=== PATIENT | female | born 1940 | race Hispanic/Latino ===

== ENCOUNTER 2017-08-16 17:08 | Inpatient (IN) | payer MEDICARE ==
[2017-08-16 17:52] LABS: Hematocrit 40.1 % (30.3-42.9); Hemoglobin 13.5 gm/dl (10.1-14.3); Mean Corpuscular HGB Conc 34 % (30-34); Mean Corpuscular Hemoglobin 32 pg (28-32); Mean Corpuscular Volume 95 fl (79-97); Platelet Count 248 K/mm3 (140-440); Red Blood Count 4.24 M/mm3 (3.65-5.03); Red Cell Distribution Width 13.1 % (13.2-15.2)
--- NOTE | 2017-08-16 17:53 | Emergency Department Report ---
ED Shortness of Breath HPI - General Chief Complaint: Dyspnea/Respdistress Stated Complaint: SID Time Seen by Provider: 08/16/17 17:31 Source: patient, EMS Mode of arrival: Stretcher Limitations: Physical Limitation - History of Present Illness Initial Comments: This diagnosis of lung mass with post obstructive pneumonia back today more short of breath, here for eval worse sob, cant use inhaler, not getting better MD Complaint: shortness of breath -: days(s) Quality: dull Consistency: intermittent Improves With: nothing Known History Of: COPD, other (lung mass history lung CA history pneumonia) Treatments Prior to Arrival: none - Related Data Home Medications Medication Instructions Recorded Confirmed Last Taken Hydrochlorothiazide [HCTZ] 12.5 mg PO QDAY 08/13/17 08/13/17 08/12/17 Metoprolol [Lopressor TAB] 100 mg PO DAILY 08/13/17 08/13/17 08/12/17 Previous Rx's Medication Instructions Recorded Last Taken Type ALBUTEROL Inhaler [ProAir HFA 2 puff IH QID PRN #1 can 08/15/17 Unknown Rx Inhaler] Levofloxacin [Levaquin] 750 mg PO QDAY #7 tablet 08/15/17 Unknown Rx Prednisone [predniSONE 10 mg 10 mg PO .TAPER #1 tab.ds.pk 08/15/17 Unknown Rx (6-Day Pack, 21 Tabs)] oxyCODONE /ACETAMINOPHEN [Percocet 1 tab PO Q6H PRN #10 tablet 08/15/17 Unknown Rx 5/325 mg] Allergies Allergy/AdvReac Type Severity Reaction Status Date / Time No Known Allergies Allergy Unverified 10/12/13 10:35 ED Review of Systems ROS: Stated complaint: SID Other details as noted in HPI Comment: All other systems reviewed and negative Constitutional: diaphoresis, malaise, weakness. denies: fever Eyes: denies: eye discharge, vision change Respiratory: shortness of breath, SOB with exertion, SOB at rest, wheezing. denies: stridor Cardiovascular: chest pain, dyspnea on exertion. denies: palpitations, syncope Gastrointestinal: denies: abdominal pain, nausea, vomiting, diarrhea, constipation, hematemesis, melena, hematochezia Neurological: weakness. denies: headache, numbness, paresthesias Hematological/Lymphatic: denies: easy bruising ED Past Medical Hx - Past Medical History Previous Medical History?: Yes Hx Hypertension: Yes Hx HIV: No Additional medical history: LUNG CA - Surgical History Hx Cholecystectomy: Yes Additional Surgical History: R pulmonectomy - Social History Smoking Status: Former Smoker Substance Use Type: None - Medications Home Medications: Home Medications Medication Instructions Recorded Confirmed Last Taken Type Hydrochlorothiazide [HCTZ] 12.5 mg PO QDAY 08/13/17 08/13/17 08/12/17 History Metoprolol [Lopressor TAB] 100 mg PO DAILY 08/13/17 08/13/17 08/12/17 History ALBUTEROL Inhaler [ProAir HFA 2 puff IH QID PRN #1 can 08/15/17 Unknown Rx Inhaler] Levofloxacin [Levaquin] 750 mg PO QDAY #7 tablet 08/15/17 Unknown Rx Prednisone [predniSONE 10 mg 10 mg PO .TAPER #1 tab.ds.pk 08/15/17 Unknown Rx (6-Day Pack, 21 Tabs)] oxyCODONE /ACETAMINOPHEN [Percocet 1 tab PO Q6H PRN #10 tablet 08/15/17 Unknown Rx 5/325 mg] ED Physical Exam - General Limitations: Physical Limitation General appearance: alert, anxious - Head Head exam: Present: atraumatic, normocephalic - Eye Eye exam: Present: PERRL, EOMI - ENT ENT exam: Present: normal exam, normal orophraynx - Neck Neck exam: Present: normal inspection. Absent: tenderness, meningismus - Respiratory Respiratory exam: Present: wheezes, rales, rhonchi, prolonged expiratory. Absent: stridor, accessory muscle use - Cardiovascular Cardiovascular Exam: Present: regular rate - GI/Abdominal GI/Abdominal exam: Present: soft. Absent: tenderness, guarding, rebound, rigid , mass, pulsatile mass - Extremities Exam Extremities exam: Present: normal capillary refill. Absent: calf tenderness - Back Exam Back exam: Present: normal inspection. Absent: CVA tenderness (L) - Neurological Exam Neurological exam: Present: alert, CN II-XII intact. Absent: motor sensory deficit ED Course Vital Signs 08/16/17 08/16/17 17:25 18:05 Temperature 97.1 F L Pulse Rate 57 L 65 Respiratory 22 22 Rate Blood Pressure 152/61 Blood Pressure 150/63 [Left] O2 Sat by Pulse 94 96 Oximetry ED Medical Decision Making - Lab Data Result diagrams: 08/16/17 17:39 - EKG Data -: EKG Interpreted by Me - EKG Data When compared to previous EKG there are: no significant change - Radiology Data Radiology results: report reviewed - Medical Decision Making Dr. Watson evaluated patient will be admitted for further evaluation of persistent shortness of breath and better oxygen therapy steroids and bronchodilator therapy Critical care attestation.: If time is entered above; I have spent that time in minutes in the direct care of this critically ill patient, excluding procedure time. ED Disposition Clinical Impression: Lung mass, Postobstructive pneumonia Disposition: 09 OP ADMIT IP TO THIS HOSP Is pt being admited?: Yes Condition: Stable Instructions: Bacterial Pneumonia (ED) Referrals: PRIMARY CARE, [Primary Care Provider] - 3-5 Days Time of Disposition: 19:01
[2017-08-16 18:13] LABS: INR 1.04 (0.87-1.13)
[2017-08-16 18:14] LABS: Partial Thromboplastin Time 34.6 Sec. (24.2-36.6)
[2017-08-16] MEDS ORDERED: ZOFRAN IV ONE (18:26)
[2017-08-16 18:32] LABS: Bilirubin,Urine NEG (Negative); Blood,Urine NEG (Negative); Color,Urine Yellow (Yellow); Mucus,Urine FEW /HPF; Protein,Urine <15 mg/dL mg/dL (Negative); Urobilinogen,Urine < 2.0 mg/dL (<2.0)
[2017-08-16 18:37] LABS: Band Neutrophils # (Manual) 0.1 K/mm3; Basophils % (Manual) 0 % (0.0-1.8); Eosinophils % (Manual) 0 % (0.0-4.3); Total Cells Counted 100
[2017-08-16 18:38] LABS: Anisocytosis 1+; Platelet Estimate Consistent w Auto
[2017-08-16 18:56] LABS: Amphetamine Screen,Urine PRESUMPTIVE NEGATIVE; Benzodiazepines Screen,Urine PRESUMPTIVE NEGATIVE; Cannabinoid Screen,Urine PRESUMPTIVE NEGATIVE; Cocaine Screen,Urine PRESUMPTIVE NEGATIVE; Methadone Screen,Urine PRESUMPTIVE NEGATIVE; Opiate Screen,Urine PRESUMPTIVE NEGATIVE
--- NOTE | 2017-08-16 18:58 | XRay Report ---
FINAL REPORT PROCEDURE: XR CHEST 1V AP TECHNIQUE: Chest radiograph anteroposterior view. CPT 40086 HISTORY: sob COMPARISON: 08/13/2017 FINDINGS: Heart: Normal. Mediastinum/Vessels: Enlarged left hilar structures is noted measuring 2.9 x 3.9 centimeters.. Lungs/Pleural space: Lungs are hyperinflated. There are no confluent infiltrates or mass lesions. Pleural spaces are clear. Emphysematous changes are noted.. Bony thorax: No acute osseous abnormality. Life support devices: None. IMPRESSION: Enlarged left hilum consistent with underlying lymphadenopathy or mass suspicious for malignancy. Emphysema No acute pulmonary infiltrates..
[2017-08-16] MEDS ORDERED: DUONEB *Not for PRN Use IH ONE (19:01)
[2017-08-16 19:22] LABS: Alanine Aminotransferase 19 units/L (7-56); Albumin 3.9 g/dL (3.9-5); BUN/Creatinine Ratio 17; Blood Urea Nitrogen 12 mg/dL (7-17)
[2017-08-16 19:31] LABS: Calcium 8.7 mg/dL (8.4-10.2); Hemolysis Index 2
--- NOTE | 2017-08-16 22:17 | History and Physical Report ---
History of Present Illness Date of examination: 08/16/17 Date of admission: 08/16/2017 Chief complaint: Chief complaint: Shortness of breath at home with no home oxygen. \ Shortness of breath worsening. History of present illness: History of Present Illness: 76-year-old female who was discharged recently after being treated for acute respiratory failure COPD exacerbation and possible new lung mass on the left side comes in for increasing shortness of breath. Patient feels that she is hypoxic. She is requesting for home oxygen. In moderate respiratory distress. Lung cancer workup was initiated in the last visit and arrangements were made for biopsy of the left lung. Patient also to follow with oncology and pulmonary doctors Dr. Moncada and Dr. Narayanan Follow-up big time smoker 76-year-old female with history of partial Rt lung resection for lung CA in 2012 recently started on an inhaler by her transportation attendant a week ago for wheezing has been having increasing shortness of breath off-and-on for 2 weeks. Chronic cough no fever no chest pain no abdominal pain. For evaluation of worsening shortness of breath. No calf pain or swelling, no abd pain , no other complaints. Some weight loss present. As per daughters the patient had lung cancer and was in remission since 2014 and apparently cancer free and stopped following with oncology since last 2 years. Former big time smoker Past Medical History Previous Medical History?: Yes Hx of Cancer: Yes (lung, R pulmonectomy; remission x5 yrs) Surgical History Past Surgical History?: Yes Additional Surgical History: R pulmonectomy Social History Smoking Status: Former Smoker Substance Use Type: None Family History Htn Review of Systems ROS: Stated complaint: SID Other details as noted in HPI Comment: All other systems reviewed and negative Constitutional: denies: diaphoresis, fever ENT: denies: dental pain, hearing loss, epistaxis Respiratory: cough, shortness of breath, SOB with exertion, SOB at rest, wheezing. denies: orthopnea, stridor Cardiovascular: denies: chest pain, palpitations, dyspnea on exertion, orthopnea , edema, syncope, paroxysmal nocturnal dyspnea Endocrine: denies: excessive sweating Gastrointestinal: denies: abdominal pain, nausea, vomiting, diarrhea, constipation, hematemesis, melena, hematochezia Neurological: denies: headache, weakness, numbness, paresthesias, confusion, abnormal gait, vertigo Hematological/Lymphatic: denies: easy bruising, swollen glands 14 point review of systems done Medications and Allergies Allergies Allergy/AdvReac Type Severity Reaction Status Date / Time No Known Allergies Allergy Unverified 10/12/13 10:35 Home Medications Medication Instructions Recorded Confirmed Last Taken Type Hydrochlorothiazide [HCTZ] 12.5 mg PO QDAY 08/13/17 08/16/17 08/12/17 History Metoprolol [Lopressor TAB] 100 mg PO DAILY 08/13/17 08/16/17 08/12/17 History ALBUTEROL Inhaler [ProAir HFA 2 puff IH QID PRN #1 can 08/15/17 08/16/17 Unknown Rx Inhaler] Levofloxacin [Levaquin] 750 mg PO QDAY #7 tablet 08/15/17 08/16/17 Unknown Rx Prednisone [predniSONE 10 mg 10 mg PO .TAPER #1 tab.ds.pk 08/15/17 08/16/17 Unknown Rx (6-Day Pack, 21 Tabs)] oxyCODONE /ACETAMINOPHEN [Percocet 1 tab PO Q6H PRN #10 tablet 08/15/17 Unknown Rx 5/325 mg] Exam - Physical Exam Narrative exam: Lying in bed slightly tachypneic - Constitutional Vitals: Temp Pulse Resp BP Pulse Ox 97.1 F L 64 16 139/66 94 08/16/17 19:50 08/16/17 19:50 08/16/17 19:53 08/16/17 19:50 08/16/17 19:53 General appearance: Present: mild distress, well-nourished - EENT Eyes: Present: PERRL ENT: hearing intact, clear oral mucosa - Neck Neck: Present: supple, normal ROM - Respiratory Respiratory effort: normal Respiratory: bilateral: CTA, rales, rhonchi - Cardiovascular Heart rate: 78 Rhythm: regular Heart Sounds: Present: S1 & S2. Absent: rub, click - Extremities Extremities: no ischemia, pulses intact, pulses symmetrical, No edema Peripheral Pulses: within normal limits - Abdominal General gastrointestinal: Present: soft, non-tender, non-distended, normal bowel sounds Female genitourinary: Present: normal - Rectal Rectal Exam: deferred - Integumentary Integumentary: Present: clear, warm, dry - Musculoskeletal Musculoskeletal: gait normal, strength equal bilaterally - Psychiatric Psychiatric: appropriate mood/affect, intact judgment & insight - Neurologic Neurologic: CNII-XII intact, moves all extremities - Allied Health Allied health notes reviewed: nursing, case management Results - Labs CBC & Chem 7: 08/16/17 17:39 08/16/17 17:39 Labs: Laboratory Last Values WBC 10.3 K/mm3 (4.5-11.0) 08/16/17 17:39 RBC 4.24 M/mm3 (3.65-5.03) 08/16/17 17:39 Hgb 13.5 gm/dl (10.1-14.3) 08/16/17 17:39 Hct 40.1 % (30.3-42.9) 08/16/17 17:39 MCV 95 fl (79-97) 08/16/17 17:39 MCH 32 pg (28-32) 08/16/17 17:39 MCHC 34 % (30-34) 08/16/17 17:39 RDW 13.1 % (13.2-15.2) L 08/16/17 17:39 Plt Count 248 K/mm3 (140-440) 08/16/17 17:39 Add Manual Diff Complete 08/16/17 17:39 Total Counted 100 08/16/17 17:39 Seg Neuts % (Manual) 90.0 % (40.0-70.0) H 08/16/17 17:39 Band Neutrophils % 1.0 % 08/16/17 17:39 Lymphocytes % (Manual) 4.0 % (13.4-35.0) L 08/16/17 17:39 Reactive Lymphs % (Man) 0 % 08/16/17 17:39 Monocytes % (Manual) 4.0 % (0.0-7.3) 08/16/17 17:39 Eosinophils % (Manual) 0 % (0.0-4.3) 08/16/17 17:39 Basophils % (Manual) 0 % (0.0-1.8) 08/16/17 17:39 Metamyelocytes % 1.0 % 08/16/17 17:39 Myelocytes % 0 % 08/16/17 17:39 Promyelocytes % 0 % 08/16/17 17:39 Blast Cells % 0 % 08/16/17 17:39 Nucleated RBC % Not Reportable 08/16/17 17:39 Seg Neutrophils # Man 9.3 K/mm3 (1.8-7.7) H 08/16/17 17:39 Band Neutrophils # 0.1 K/mm3 08/16/17 17:39 Lymphocytes # (Manual) 0.4 K/mm3 (1.2-5.4) L 08/16/17 17:39 Abs React Lymphs (Man) 0.0 K/mm3 08/16/17 17:39 Monocytes # (Manual) 0.4 K/mm3 (0.0-0.8) 08/16/17 17:39 Eosinophils # (Manual) 0.0 K/mm3 (0.0-0.4) 08/16/17 17:39 Basophils # (Manual) 0.0 K/mm3 (0.0-0.1) 08/16/17 17:39 Metamyelocytes # 0.1 K/mm3 08/16/17 17:39 Myelocytes # 0.0 K/mm3 08/16/17 17:39 Promyelocytes # 0.0 K/mm3 08/16/17 17:39 Blast Cells # 0.0 K/mm3 08/16/17 17:39 WBC Morphology Not Reportable 08/16/17 17:39 Hypersegmented Neuts Not Reportable 08/16/17 17:39 Hyposegmented Neuts Not Reportable 08/16/17 17:39 Hypogranular Neuts Not Reportable 08/16/17 17:39 Smudge Cells Not Reportable 08/16/17 17:39 Toxic Granulation Not Reportable 08/16/17 17:39 Toxic Vacuolation Not Reportable 08/16/17 17:39 Dohle Bodies Not Reportable 08/16/17 17:39 Pelger-Huet Anomaly Not Reportable 08/16/17 17:39 Veronica Rods Not Reportable 08/16/17 17:39 Platelet Estimate Consistent w auto 08/16/17 17:39 Clumped Platelets Not Reportable 08/16/17 17:39 Plt Clumps, EDTA Not Reportable 08/16/17 17:39 Large Platelets Not Reportable 08/16/17 17:39 Giant Platelets Not Reportable 08/16/17 17:39 Platelet Satelliting Not Reportable 08/16/17 17:39 Plt Morphology Comment Not Reportable 08/16/17 17:39 RBC Morphology Not Reportable 08/16/17 17:39 Dimorphic RBCs Not Reportable 08/16/17 17:39 Polychromasia Not Reportable 08/16/17 17:39 Hypochromasia Not Reportable 08/16/17 17:39 Poikilocytosis Not Reportable 08/16/17 17:39 Anisocytosis 1+ 08/16/17 17:39 Microcytosis Not Reportable 08/16/17 17:39 Macrocytosis Not Reportable 08/16/17 17:39 Spherocytes Not Reportable 08/16/17 17:39 Pappenheimer Bodies Not Reportable 08/16/17 17:39 Sickle Cells Not Reportable 08/16/17 17:39 Target Cells Not Reportable 08/16/17 17:39 Tear Drop Cells Not Reportable 08/16/17 17:39 Ovalocytes Not Reportable 08/16/17 17:39 Helmet Cells Not Reportable 08/16/17 17:39 [place] Bodies Not Reportable 08/16/17 17:39 [place] Rings Not Reportable 08/16/17 17:39 [place] Cells Not Reportable 08/16/17 17:39 Bite Cells Not Reportable 08/16/17 17:39 Crenated Cell Not Reportable 08/16/17 17:39 Elliptocytes Not Reportable 08/16/17 17:39 Acanthocytes (Spur) Not Reportable 08/16/17 17:39 Rouleaux Not Reportable 08/16/17 17:39 Hemoglobin C Crystals Not Reportable 08/16/17 17:39 Schistocytes Not Reportable 08/16/17 17:39 Malaria parasites Not Reportable 08/16/17 17:39 Manny Bodies Not Reportable 08/16/17 17:39 Hem Pathologist Commnt No 08/16/17 17:39 PT 14.1 Sec. (12.2-14.9) 08/16/17 17:39 INR 1.04 (0.87-1.13) 08/16/17 17:39 APTT 34.6 Sec. (24.2-36.6) 08/16/17 17:39 POC ABG pH 7.504 (7.35-7.45) H 08/16/17 19:24 POC ABG pCO2 40.1 (35-45) 08/16/17 19:24 POC ABG pO2 49 (80-105) L 08/16/17 19:24 POC ABG HCO3 31.5 08/16/17 19:24 POC ABG Total CO2 33 08/16/17 19:24 POC ABG O2 Sat 88 08/16/17 19:24 POC ABG Base Excess 8 08/16/17 19:24 FiO2 21 % 08/16/17 19:24 Sodium 137 mmol/L (137-145) 08/16/17 17:39 Potassium 3.6 mmol/L (3.6-5.0) 08/16/17 17:39 Chloride 94.0 mmol/L (98-107) L 08/16/17 17:39 Carbon Dioxide 31 mmol/L (22-30) H 08/16/17 17:39 Anion Gap 16 mmol/L 08/16/17 17:39 BUN 12 mg/dL (7-17) 08/16/17 17:39 Creatinine 0.7 mg/dL (0.7-1.2) 08/16/17 17:39 Estimated GFR > 60 ml/min 08/16/17 17:39 BUN/Creatinine Ratio 17 % 08/16/17 17:39 Glucose 132 mg/dL (65-100) H 08/16/17 17:39 Calcium 8.7 mg/dL (8.4-10.2) 08/16/17 17:39 Total Bilirubin 0.40 mg/dL (0.1-1.2) 08/16/17 17:39 AST 21 units/L (5-40) 08/16/17 17:39 ALT 19 units/L (7-56) 08/16/17 17:39 Alkaline Phosphatase 70 units/L (35-129) 08/16/17 17:39 Troponin T < 0.010 ng/mL (0.00-0.029) 08/16/17 17:39 Total Protein 6.3 g/dL (6.3-8.2) 08/16/17 17:39 Albumin 3.9 g/dL (3.9-5) 08/16/17 17:39 Albumin/Globulin Ratio 1.6 % 08/16/17 17:39 Urine Color Yellow (Yellow) 08/16/17 18:08 Urine Turbidity Clear (Clear) 08/16/17 18:08 Urine pH 6.0 (5.0-7.0) 08/16/17 18:08 Ur Specific [place] 1.016 (1.003-1.030) 08/16/17 18:08 Urine Protein <15 mg/dl mg/dL (Negative) 08/16/17 18:08 Urine Glucose (UA) Neg mg/dL (Negative) 08/16/17 18:08 Urine Ketones Neg mg/dL (Negative) 08/16/17 18:08 Urine Blood Neg (Negative) 08/16/17 18:08 Urine Nitrite Neg (Negative) 08/16/17 18:08 Urine Bilirubin Neg (Negative) 08/16/17 18:08 Urine Urobilinogen < 2.0 mg/dL (<2.0) 08/16/17 18:08 Ur Leukocyte Esterase Sm (Negative) 08/16/17 18:08 Urine WBC (Auto) 4.0 /HPF (0.0-6.0) 08/16/17 18:08 Urine RBC (Auto) 4.0 /HPF (0.0-6.0) 08/16/17 18:08 U Epithel Cells (Auto) 8.0 /HPF (0-13.0) 08/16/17 18:08 Urine Mucus Few /HPF 08/16/17 18:08 Urine Opiates Screen Presumptive negative 08/16/17 18:08 Urine Methadone Screen Presumptive negative 08/16/17 18:08 Ur Barbiturates Screen Presumptive negative 08/16/17 18:08 Ur Phencyclidine Scrn Presumptive negative 08/16/17 18:08 Ur Amphetamines Screen Presumptive negative 08/16/17 18:08 U Benzodiazepines Scrn Presumptive negative 08/16/17 18:08 Urine Cocaine Screen Presumptive negative 08/16/17 18:08 U Marijuana (THC) Screen Presumptive negative 08/16/17 18:08 Drugs of Abuse Note Disclamer 08/16/17 18:08 Short CBC 08/16/17 Range/Units 17:39 WBC 10.3 (4.5-11.0) K/mm3 Hgb 13.5 (10.1-14.3) gm/dl Hct 40.1 (30.3-42.9) % Plt Count 248 (140-440) K/mm3 BMP 08/16/17 17:39 Sodium 137 Potassium 3.6 Chloride 94.0 L Carbon Dioxide 31 H BUN 12 Creatinine 0.7 Glucose 132 H Calcium 8.7 Cardiac Enzymes 08/16/17 Range/Units 17:39 Troponin T < 0.010 (0.00-0.029) ng/mL Liver Function 08/16/17 Range/Units 17:39 Total Bilirubin 0.40 (0.1-1.2) mg/dL AST 21 (5-40) units/L ALT 19 (7-56) units/L Alkaline Phosphatase 70 (35-129) units/L Albumin 3.9 (3.9-5) g/dL Urine 08/16/17 Range/Units 18:08 Urine Color Yellow (Yellow) Urine pH 6.0 (5.0-7.0) Ur Specific [place] 1.016 (1.003-1.030) Urine Protein <15 mg/dl (Negative) mg/dL Urine Glucose (UA) Neg (Negative) mg/dL - Imaging and Cardiology Chest x-ray: report reviewed Imaging and Cardiology: FINDINGS: Abdomen and pelvis CT performed following oral contrast and intravenous administration of 100 cc of Omnipaque 300. LUNG BASES: Mild emphysematous changes at the lung bases. No effusions. Nonspecific distal esophageal wall prominence/thickening, not excluded for gastroesophageal reflux and/or hiatal hernia, amongst others. ABDOMEN: Cholecystectomy clips. Few small pancreatic calcifications. Subtle fatty hepatic infiltration not excluded. Otherwise unremarkable liver, spleen, adrenals, IVC and non-hydronephrotic kidneys. Approximately 2.3 cm partly exophytic left lower renal cortical cyst. Atherosclerotic aortoiliac calcifications with nonocclusive distal aortic intraluminal thrombus as well. No ascites or size significant adenopathy. Opacified GI tract within normal limits. PELVIS: Uterus, adnexa/ovaries, urinary bladder and the rectosigmoid within normal limits. No free fluid or size significant adenopathy. Cecum low-lying in the right hemipelvis anteriorly. Demineralized bones with multilevel spinal degenerative changes as spurring, few endplate irregularities as also moderate to severe L5-S1 disc narrowing. CONCLUSION: No acute abdomen or pelvic CT abnormality with various incidental findings as at the lung bases, cholecystectomy, chronic pancreatitis, small left renal cyst and spinal degenerative changes, amongst others, as detailed above. Please correlate. Chest x-ray IMPRESSION: Enlarged left hilum consistent with underlying lymphadenopathy or mass suspicious for malignancy. Emphysema No acute pulmonary infiltrates.. Interval changes from last x-ray Left lung collapse resolved. Possible atelectasis. at that time Assessment and Plan Assessment and plan: Assessment and Plan Advance Directives: Yes (Full code) VTE prophylaxis?: Chemical Plan of care discussed with patient/family: Yes - Patient Problems (1) Acute respiratory failure with hypoxia Current Visit: Yes Status: Acute Plan to address problem: IV solumedrol IV abx and Duonebs ABG consistent with hypoxia. PH is 7.5 the CO2 is 40 and PO2 is 49 sats are 88 % on room air. Patient qualifies for home oxygen. Patient was sent home on home oxygen. 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 No collapse or consolidation at this point. Oncology follow-up Further imaging studies as necessary (3) Postobstructive pneumonia Consolidation versus atelectasis resolved Continue IV Levaquin (4) COPD exacerbation Current Visit: Yes Status: Acute Plan to address problem: IV solumedrol IV abx and Duonebs (5) HTN (hypertension) Current Visit: Yes Status: Chronic Qualifiers: Hypertension type: essential hypertension Qualified Code(s): I10 - Essential (primary) hypertension Plan to address problem: Cont antihypertensives (6) DVT prophylaxis Current Visit: Yes Status: Acute Plan to address problem: 7) Discharge planning issues Patient is to be on oxygen Also home hospice if family agrees On Heparin Advance Directives: Yes (full code) VTE prophylaxis?: Chemical Plan of care discussed with patient/family: Yes
[2017-08-16] MEDS ORDERED: PERCOCET 5/325 PO PRN (22:20)
[2017-08-16] MEDS ORDERED: MORPHINE IV PRN (22:21)
[2017-08-16] MEDS ORDERED: ZOFRAN IV PRN (22:21)
[2017-08-16] MEDS ORDERED: SODIUM CHLORIDE FLUSH SYRINGE 10 ML IV PRN (22:21)
[2017-08-16] MEDS ORDERED: TYLENOL PO PRN (22:21)
[2017-08-17] MEDS: D5NS 1,000 ML IV SCH (01:13)
[2017-08-17 05:11] LABS: Basophils % (Auto) 0.1 % (0.0-1.8); Hematocrit 39.1 % (30.3-42.9); Hemoglobin 13.2 gm/dl (10.1-14.3); Lymphocytes # (Auto) 0.8 K/mm3 (1.2-5.4); Lymphocytes % (Auto) 9.6 % (13.4-35.0); Mean Corpuscular HGB Conc 34 % (30-34); Mean Corpuscular Hemoglobin 32 pg (28-32); Mean Corpuscular Volume 95 fl (79-97); Monocytes # (Auto) 0.3 K/mm3 (0.0-0.8); Platelet Count 225 K/mm3 (140-440); Red Blood Count 4.14 M/mm3 (3.65-5.03); Red Cell Distribution Width 12.8 % (13.2-15.2)
[2017-08-17 05:45] LABS: Alanine Aminotransferase 17 units/L (7-56); Albumin 3.6 g/dL (3.9-5); BUN/Creatinine Ratio 18; Blood Urea Nitrogen 11 mg/dL (7-17); Calcium 8.4 mg/dL (8.4-10.2); Hemolysis Index 2
[2017-08-17] MEDS: DUONEB *Not for PRN Use IH SCH ×4 (08:24→20:30)
[2017-08-17] MEDS: SODIUM CHLORIDE FLUSH SYRINGE 10 ML IV SCH ×2 (09:20→23:43)
[2017-08-17] MEDS: LEVAQUIN 750MG/150ML 750 MG/150 ML BAG IV SCH (09:24)
[2017-08-17] MEDS: HEPARIN SUB-Q SCH ×2 (09:26→23:44)
[2017-08-17] MEDS: PEPCID IV SCH ×2 (09:26→23:43)
[2017-08-17] MEDS ORDERED: TYLENOL #3 PO PRN (10:31)
[2017-08-17] MEDS ORDERED: BENADRYL PO PRN (10:31)
[2017-08-17] MEDS: LOPRESSOR PO SCH (11:00)
--- NOTE | 2017-08-17 11:03 | XRay Report ---
AP CHEST: HISTORY: Lung mass No change is demonstrated since AP chest dated 08/16/[address] chest dated 08/13/17. Left hilar prominence is again noted with atelectasis in the anterior left upper lobe. Presumed mass or adenopathy at the left hilum is unchanged. Underlying emphysematous changes are stable. No evidence for pneumonia, pleural effusion or pneumothorax. Heart size remains within normal limits. IMPRESSION: No change.
--- NOTE | 2017-08-17 11:27 | Progress Note ---
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 Chronic cough no fever no chest pain no abdominal pain. For evaluation of worsening shortness of breath. No calf pain or swelling, no abd pain , no other complaints. Some weight loss present. As per daughters the patient had lung cancer and was in remission since 2014 and apparently cancer free and stopped following with oncology since last 2 years. Former big time smoker (1) Acute respiratory failure with hypoxia Current Visit: Yes Status: Acute Plan to address problem: IV solumedrol IV abx and Duonebs Taper solumedrol ABG consistent with hypoxia. PH is 7.5 the CO2 is 40 and PO2 is 49 sats are 88 % on room air. Patient qualifies for home oxygen. Patient was sent home on home oxygen. 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 No collapse or consolidation at this point. Oncology follow-up Further imaging studies as necessary MRI brain in am Lung biopsy in AM (3) Postobstructive pneumonia Consolidation versus atelectasis resolved switch levaquin PO (4) COPD exacerbation Current Visit: Yes Status: Acute Plan to address problem: IV solumedrol IV abx and Duonebs (5) HTN (hypertension) Current Visit: Yes Status: Chronic Qualifiers: Hypertension type: essential hypertension Qualified Code(s): I10 - Essential (primary) hypertension Plan to address problem: Cont antihypertensives (6) DVT prophylaxis Current Visit: Yes Status: Acute Plan to address problem: 7) Discharge planning issues Patient is to be on oxygen Also home hospice if family agrees On Heparin Advance Directives: Yes (full code) VTE prophylaxis?: Chemical Plan of care discussed with patient/family: Yes History Interval history: Patient seen and examined today, still with some shortness of breath but improved with oxygen. reports itching at the site of INT. Denies any nausea, vomiting. Reports chronic headache, 3/10 Hospitalist Physical - Constitutional Vitals: Temp Pulse Resp BP Pulse Ox 97.9 F 75 20 126/46 96 08/17/17 07:48 08/17/17 08:38 08/17/17 10:00 08/17/17 07:48 08/17/17 08:28 General appearance: Present: mild distress, cachectic, other (frail appearing) - EENT Eyes: Present: PERRL, EOM intact ENT: hearing intact, clear oral mucosa - Neck Neck: Present: supple, normal ROM - Respiratory Respiratory effort: normal Respiratory: bilateral: diminished - Cardiovascular Rhythm: regular Heart Sounds: Present: S1 & S2 - Extremities Extremities: no ischemia, pulses intact, pulses symmetrical, No edema, normal temperature Peripheral Pulses: within normal limits - Abdominal General gastrointestinal: soft, non-tender, non-distended, normal bowel sounds - Integumentary Integumentary: Present: clear, warm - Psychiatric Psychiatric: appropriate mood/affect - Neurologic Neurologic: CNII-XII intact, moves all extremities - Allied Health Allied health notes reviewed: nursing Results - Labs CBC & Chem 7: 08/17/17 04:54 08/17/17 04:54 Labs: Laboratory Last Values WBC 8.6 K/mm3 (4.5-11.0) 08/17/17 04:54 RBC 4.14 M/mm3 (3.65-5.03) 08/17/17 04:54 Hgb 13.2 gm/dl (10.1-14.3) 08/17/17 04:54 Hct 39.1 % (30.3-42.9) 08/17/17 04:54 MCV 95 fl (79-97) 08/17/17 04:54 MCH 32 pg (28-32) 08/17/17 04:54 MCHC 34 % (30-34) 08/17/17 04:54 RDW 12.8 % (13.2-15.2) L 08/17/17 04:54 Plt Count 225 K/mm3 (140-440) 08/17/17 04:54 Lymph % (Auto) 9.6 % (13.4-35.0) L 08/17/17 04:54 [place] % (Auto) 4.0 % (0.0-7.3) 08/17/17 04:54 Eos % (Auto) 0.0 % (0.0-4.3) 08/17/17 04:54 Baso % (Auto) 0.1 % (0.0-1.8) 08/17/17 04:54 Lymph # 0.8 K/mm3 (1.2-5.4) L 08/17/17 04:54 [place] # 0.3 K/mm3 (0.0-0.8) 08/17/17 04:54 Eos # 0.0 K/mm3 (0.0-0.4) 08/17/17 04:54 Baso # 0.0 K/mm3 (0.0-0.1) 08/17/17 04:54 Add Manual Diff Complete 08/16/17 17:39 Total Counted 100 08/16/17 17:39 Seg Neutrophils % 86.3 % (40.0-70.0) H 08/17/17 04:54 Seg Neuts % (Manual) 90.0 % (40.0-70.0) H 08/16/17 17:39 Band Neutrophils % 1.0 % 08/16/17 17:39 Lymphocytes % (Manual) 4.0 % (13.4-35.0) L 08/16/17 17:39 Reactive Lymphs % (Man) 0 % 08/16/17 17:39 Monocytes % (Manual) 4.0 % (0.0-7.3) 08/16/17 17:39 Eosinophils % (Manual) 0 % (0.0-4.3) 08/16/17 17:39 Basophils % (Manual) 0 % (0.0-1.8) 08/16/17 17:39 Metamyelocytes % 1.0 % 08/16/17 17:39 Myelocytes % 0 % 08/16/17 17:39 Promyelocytes % 0 % 08/16/17 17:39 Blast Cells % 0 % 08/16/17 17:39 Nucleated RBC % Not Reportable 08/16/17 17:39 Seg Neutrophils # 7.4 K/mm3 (1.8-7.7) 08/17/17 04:54 Seg Neutrophils # Man 9.3 K/mm3 (1.8-7.7) H 08/16/17 17:39 Band Neutrophils # 0.1 K/mm3 08/16/17 17:39 Lymphocytes # (Manual) 0.4 K/mm3 (1.2-5.4) L 08/16/17 17:39 Abs React Lymphs (Man) 0.0 K/mm3 08/16/17 17:39 Monocytes # (Manual) 0.4 K/mm3 (0.0-0.8) 08/16/17 17:39 Eosinophils # (Manual) 0.0 K/mm3 (0.0-0.4) 08/16/17 17:39 Basophils # (Manual) 0.0 K/mm3 (0.0-0.1) 08/16/17 17:39 Metamyelocytes # 0.1 K/mm3 08/16/17 17:39 Myelocytes # 0.0 K/mm3 08/16/17 17:39 Promyelocytes # 0.0 K/mm3 08/16/17 17:39 Blast Cells # 0.0 K/mm3 08/16/17 17:39 WBC Morphology Not Reportable 08/16/17 17:39 Hypersegmented Neuts Not Reportable 08/16/17 17:39 Hyposegmented Neuts Not Reportable 08/16/17 17:39 Hypogranular Neuts Not Reportable 08/16/17 17:39 Smudge Cells Not Reportable 08/16/17 17:39 Toxic Granulation Not Reportable 08/16/17 17:39 Toxic Vacuolation Not Reportable 08/16/17 17:39 Dohle Bodies Not Reportable 08/16/17 17:39 Pelger-Huet Anomaly Not Reportable 08/16/17 17:39 Veronica Rods Not Reportable 08/16/17 17:39 Platelet Estimate Consistent w auto 08/16/17 17:39 Clumped Platelets Not Reportable 08/16/17 17:39 Plt Clumps, EDTA Not Reportable 08/16/17 17:39 Large Platelets Not Reportable 08/16/17 17:39 Giant Platelets Not Reportable 08/16/17 17:39 Platelet Satelliting Not Reportable 08/16/17 17:39 Plt Morphology Comment Not Reportable 08/16/17 17:39 RBC Morphology Not Reportable 08/16/17 17:39 Dimorphic RBCs Not Reportable 08/16/17 17:39 Polychromasia Not Reportable 08/16/17 17:39 Hypochromasia Not Reportable 08/16/17 17:39 Poikilocytosis Not Reportable 08/16/17 17:39 Anisocytosis 1+ 08/16/17 17:39 Microcytosis Not Reportable 08/16/17 17:39 Macrocytosis Not Reportable 08/16/17 17:39 Spherocytes Not Reportable 08/16/17 17:39 Pappenheimer Bodies Not Reportable 08/16/17 17:39 Sickle Cells Not Reportable 08/16/17 17:39 Target Cells Not Reportable 08/16/17 17:39 Tear Drop Cells Not Reportable 08/16/17 17:39 Ovalocytes Not Reportable 08/16/17 17:39 Helmet Cells Not Reportable 08/16/17 17:39 [place] Bodies Not Reportable 08/16/17 17:39 [place] Rings Not Reportable 08/16/17 17:39 Mariel[place] Cells Not Reportable 08/16/17 17:39 Bite Cells Not Reportable 08/16/17 17:39 Crenated Cell Not Reportable 08/16/17 17:39 Elliptocytes Not Reportable 08/16/17 17:39 Acanthocytes (Spur) Not Reportable 08/16/17 17:39 Rouleaux Not Reportable 08/16/17 17:39 Hemoglobin C Crystals Not Reportable 08/16/17 17:39 Schistocytes Not Reportable 08/16/17 17:39 Malaria parasites Not Reportable 08/16/17 17:39 Manny Bodies Not Reportable 08/16/17 17:39 Hem Pathologist Commnt No 08/16/17 17:39 PT 14.1 Sec. (12.2-14.9) 08/16/17 17:39 INR 1.04 (0.87-1.13) 08/16/17 17:39 APTT 34.6 Sec. (24.2-36.6) 08/16/17 17:39 POC ABG pH 7.504 (7.35-7.45) H 08/16/17 19:24 POC ABG pCO2 40.1 (35-45) 08/16/17 19:24 POC ABG pO2 49 (80-105) L 08/16/17 19:24 POC ABG HCO3 31.5 08/16/17 19:24 POC ABG Total CO2 33 08/16/17 19:24 POC ABG O2 Sat 88 08/16/17 19:24 POC ABG Base Excess 8 08/16/17 19:24 FiO2 21 % 08/16/17 19:24 Sodium 145 mmol/L (137-145) D 08/17/17 04:54 Potassium 3.6 mmol/L (3.6-5.0) 08/17/17 04:54 Chloride 97.5 mmol/L (98-107) L 08/17/17 04:54 Carbon Dioxide 31 mmol/L (22-30) H 08/17/17 04:54 Anion Gap 20 mmol/L 08/17/17 04:54 BUN 11 mg/dL (7-17) 08/17/17 04:54 Creatinine 0.6 mg/dL (0.7-1.2) L 08/17/17 04:54 Estimated GFR > 60 ml/min 08/17/17 04:54 BUN/Creatinine Ratio 18 % 08/17/17 04:54 Glucose 131 mg/dL (65-100) H 08/17/17 04:54 Calcium 8.4 mg/dL (8.4-10.2) 08/17/17 04:54 Total Bilirubin 0.40 mg/dL (0.1-1.2) 08/17/17 04:54 AST 15 units/L (5-40) 08/17/17 04:54 ALT 17 units/L (7-56) 08/17/17 04:54 Alkaline Phosphatase 65 units/L (35-129) 08/17/17 04:54 Troponin T < 0.010 ng/mL (0.00-0.029) 08/16/17 17:39 Total Protein 6.3 g/dL (6.3-8.2) 08/17/17 04:54 Albumin 3.6 g/dL (3.9-5) L 08/17/17 04:54 Albumin/Globulin Ratio 1.3 % 08/17/17 04:54 Urine Color Yellow (Yellow) 08/16/17 18:08 Urine Turbidity Clear (Clear) 08/16/17 18:08 Urine pH 6.0 (5.0-7.0) 08/16/17 18:08 Ur Specific [place] 1.016 (1.003-1.030) 08/16/17 18:08 Urine Protein <15 mg/dl mg/dL (Negative) 08/16/17 18:08 Urine Glucose (UA) Neg mg/dL (Negative) 08/16/17 18:08 Urine Ketones Neg mg/dL (Negative) 08/16/17 18:08 Urine Blood Neg (Negative) 08/16/17 18:08 Urine Nitrite Neg (Negative) 08/16/17 18:08 Urine Bilirubin Neg (Negative) 08/16/17 18:08 Urine Urobilinogen < 2.0 mg/dL (<2.0) 08/16/17 18:08 Ur Leukocyte Esterase Sm (Negative) 08/16/17 18:08 Urine WBC (Auto) 4.0 /HPF (0.0-6.0) 08/16/17 18:08 Urine RBC (Auto) 4.0 /HPF (0.0-6.0) 08/16/17 18:08 U Epithel Cells (Auto) 8.0 /HPF (0-13.0) 08/16/17 18:08 Urine Mucus Few /HPF 08/16/17 18:08 Urine Opiates Screen Presumptive negative 08/16/17 18:08 Urine Methadone Screen Presumptive negative 08/16/17 18:08 Ur Barbiturates Screen Presumptive negative 08/16/17 18:08 Ur Phencyclidine Scrn Presumptive negative 08/16/17 18:08 Ur Amphetamines Screen Presumptive negative 08/16/17 18:08 U Benzodiazepines Scrn Presumptive negative 08/16/17 18:08 Urine Cocaine Screen Presumptive negative 08/16/17 18:08 U Marijuana (THC) Screen Presumptive negative 08/16/17 18:08 Drugs of Abuse Note Disclamer 08/16/17 18:08 - Imaging and Cardiology CT scan - chest: image reviewed (hilar mass)
--- NOTE | 2017-08-17 12:47 | Magnetic Resonance Report ---
MRI OF THE BRAIN WITHOUT CONTRAST: HISTORY: Metastatic lesion PROCEDURE: Multiplanar, multisequence MR imaging of the brain without IV contrast was performed. FINDINGS: No relevant comparison. Mild diffuse cortical atrophy and moderate nonspecific chronic white matter changes are identified. No evidence for acute ischemia, hemorrhage or mass. No chronic infarct or extra-axial fluid collection. The midline structures are central. The basal cisterns are patent. Normal ventricular size. The orbital cavities and sella turcica demonstrate no abnormality. The visualized paranasal sinuses and mastoid air cells are well aerated. IMPRESSION: Volume loss and chronic white matter changes. No evidence for metastatic lesion on noncontrast MR.
[2017-08-17] MEDS: HCTZ PO SCH (13:44)
--- NOTE | 2017-08-17 14:41 | Consultation ---
History of Present Illness Consult date: 08/17/17 Reason for consult: dyspnea, COPD, abnormal CXR/CT History of present illness: PULMONARY CONSULTATION Dr. Ozuna thank you for asking us to participate in the care of this patient. 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 Patient discharged next day. Patient readmitted again for exacerbation of COPD.Detailed history obtained from both daughters at this time Patient has heavy history of smoking in the Past 1 1/2 pack x 50 years. Stopped smoking 2012. Patient has history of Lung CA in the past. S/P right sided wedge resection in 2013 and followed at [facility]. Also followed by Dr. BAILEY. Patients chest xray and CAT scan of chest showed left hilar prominence and left upper lobe atelectasis. Recommend bronchoscopy and Biopsy. Patient wanted to get pulmonary work up bronchoscopy and biopsy done at [facility] where her previous records are. Patient breathing some what better to day.Patient resting on 3 litres O2 . Patients blood gases on admission PH 7.5 Pco2 40 PO2 49 HCO3 32 O2 saturation 88% on room air. Patient is candidate for home O2. Recommend Home O2 2 to 3 litres via nasal canula.Patient is placed on albuterol/atrovent aerosol treatments q 6 hours, I/ V solumedral, I/V Levaquin and DVT and GI prophylaxis. Patient says feeling better. 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 Patient is . She has two children. 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 Patient also complained some cough and weight loss. Told the patient and family since they want pulmonary work up at [place], Recommend to contact those doctors at [facility] and see them once she discharged from here. Past History Past Medical History: cancer, COPD Past Surgical History: Other (Wedge resection of right lung 2012.) Medications and Allergies Allergies Allergy/AdvReac Type Severity Reaction Status Date / Time No Known Allergies Allergy Unverified 10/12/13 10:35 Home Medications Medication Instructions Recorded Confirmed Last Taken Type Hydrochlorothiazide [HCTZ] 12.5 mg PO QDAY 08/13/17 08/16/17 08/12/17 History Metoprolol [Lopressor TAB] 100 mg PO DAILY 08/13/17 08/16/17 08/12/17 History ALBUTEROL Inhaler [ProAir HFA 2 puff IH QID PRN #1 can 08/15/17 08/16/17 Unknown Rx Inhaler] Levofloxacin [Levaquin] 750 mg PO QDAY #7 tablet 08/15/17 08/16/17 Unknown Rx Prednisone [predniSONE 10 mg 10 mg PO .TAPER #1 tab.ds.pk 08/15/17 08/16/17 Unknown Rx (6-Day Pack, 21 Tabs)] oxyCODONE /ACETAMINOPHEN [Percocet 1 tab PO Q6H PRN #10 tablet 08/15/17 Unknown Rx 5/325 mg] Active Meds: Active Medications Acetaminophen/Codeine Phosphate (Tylenol #3) 1 tab PO Q6H PRN PRN Reason: Pain, Moderate (4-6) Last Admin: 08/17/17 11:00 Dose: 1 tab Albuterol/Ipratropium (Duoneb *Not For Prn Use*) 1 ampul IH QIDRT [facility] Last Admin: 08/17/17 12:43 Dose: 1 ampul Diphenhydramine HCl (Benadryl) 25 mg PO Q8H PRN PRN Reason: Itching Famotidine (Pepcid) 20 mg IV BID [facility] Last Admin: 08/17/17 09:26 Dose: 20 mg Heparin Sodium (Porcine) (Heparin) 5,000 unit SUB-Q Q12HR [facility] Last Admin: 08/17/17 09:26 Dose: 5,000 unit Hydrochlorothiazide (Hctz) 12.5 mg PO QDAY [facility] Last Admin: 08/17/17 13:44 Dose: 12.5 mg Dextrose/Sodium Chloride (D5ns) 1,000 mls @ 42 mls/hr IV DIRECT [facility] Last Admin: 08/17/17 01:13 Dose: 42 mls/hr Levofloxacin/Dextrose (Levaquin 750mg/150ml) 750 mg in 150 mls @ 100 mls/hr IV Q24HR [facility]; Protocol Last Admin: 08/17/17 09:24 Dose: 100 mls/hr Methylprednisolone Sodium Succinate (Solu-Medrol) 40 mg IV Q8HR [facility] Last Admin: 08/17/17 13:45 Dose: 40 mg Metoprolol Tartrate (Lopressor) 100 mg PO DAILY [facility] Last Admin: 08/17/17 11:00 Dose: 100 mg Morphine Sulfate (Morphine) 2 mg IV Q4H PRN PRN Reason: Pain, Moderate (4-6) Ondansetron HCl (Zofran) 4 mg IV Q8H PRN PRN Reason: Nausea And Vomiting Oxycodone/Acetaminophen (Percocet 5/325) 1 tab PO Q6H PRN PRN Reason: Pain, Moderate (4-6) Sodium Chloride (Sodium Chloride Flush Syringe 10 Ml) 10 ml IV BID [facility] Last Admin: 08/17/17 09:20 Dose: Not Given Sodium Chloride (Sodium Chloride Flush Syringe 10 Ml) 10 ml IV PRN PRN PRN Reason: LINE FLUSH Review of Systems All systems: negative Physical Examination Vital signs: Vital Signs Temp Pulse Resp BP Pulse Ox 97.1 F L 57 L 22 152/61 94 08/16/17 17:25 08/16/17 17:25 08/16/17 17:25 08/16/17 17:25 08/16/17 17:25 General appearance: no acute distress, alert Eyes: non-icteric ENT: oropharynx moist Neck: supple, no lymphadenopathy Ascultation: Bilateral: diminished breath sounds Cardiovascular: regular rate and rhythm Gastrointestinal: normoactive bowel sounds, soft, non-tender Integumentary: normal Extremities: no cyanosis, no edema Musculoskeletal: no deformities (Can not assess at this time.) Gait: other normal mental status, non-focal exam, pupils equal and round, other (Patient has tremors.) anxious Results - Laboratory Findings CBC and BMP: 08/17/17 04:54 08/17/17 04:54 ABG POC ABG pH 7.504 (7.35-7.45) H 08/16/17 19:24 POC ABG pCO2 40.1 (35-45) 08/16/17 19:24 POC ABG pO2 49 (80-105) L 08/16/17 19:24 POC ABG HCO3 31.5 08/16/17 19:24 POC ABG Total CO2 33 08/16/17 19:24 POC ABG O2 Sat 88 08/16/17 19:24 PT/INR, D-dimer PT 14.1 Sec. (12.2-14.9) 08/16/17 17:39 INR 1.04 (0.87-1.13) 08/16/17 17:39 Abnormal lab findings: Abnormal Labs 08/16/17 08/16/17 08/16/17 17:39 17:39 19:24 RDW 13.1 L Lymph % (Auto) Lymph # Seg Neutrophils % Seg Neuts % (Manual) 90.0 H Lymphocytes % (Manual) 4.0 L Seg Neutrophils # Man 9.3 H Lymphocytes # (Manual) 0.4 L POC ABG pH 7.504 H POC ABG pO2 49 L Chloride 94.0 L Carbon Dioxide 31 H Creatinine Glucose 132 H Albumin 08/17/17 08/17/17 04:54 04:54 RDW 12.8 L Lymph % (Auto) 9.6 L Lymph # 0.8 L Seg Neutrophils % 86.3 H Seg Neuts % (Manual) Lymphocytes % (Manual) Seg Neutrophils # Man Lymphocytes # (Manual) POC ABG pH POC ABG pO2 Chloride 97.5 L Carbon Dioxide 31 H Creatinine 0.6 L Glucose 131 H Albumin 3.6 L - Diagnostic Findings Chest x-ray: report reviewed (Left hilar prominence, left upper lobe atelectasis.), image reviewed Assessment and Plan This is 76 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 Patient discharged next day. Patient readmitted again for exacerbation of COPD.Detailed history obtained from both daughters at this time Patient has heavy history of smoking in the Past 1 1/2 pack x 50 years. Stopped smoking 2012. Patient has history of Lung CA in the past. S/P right sided wedge resection in 2013 and followed at [facility]. Also followed by Dr. BAILEY. Patients chest xray and CAT scan of chest showed left hilar prominence and left upper lobe atelectasis. Recommend bronchoscopy and Biopsy. Patient wanted to get pulmonary work up bronchoscopy and biopsy done at [facility] where her previous records are. Patient breathing some what better to day.Patient resting on 3 litres O2 . Patients blood gases on admission PH 7.5 Pco2 40 PO2 49 HCO3 32 O2 saturation 88% on room air. Patient is candidate for home O2. Recommend Home O2 2 to 3 litres via nasal canula.Patient is placed on albuterol/atrovent aerosol treatments q 6 hours, I/ V solumedral, I/V Levaquin and DVT and GI prophylaxis. Patient says feeling better. 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 Patient is . She has two children. 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 Patient also complained some cough and weight loss. Told the patient and family since they want pulmonary work up at [place], Recommend to contact those doctors at [facility] [facility] and see them once she discharged from here. - Patient Problems (1) Acute respiratory failure with hypoxia Current Visit: No Status: Acute Plan to address problem: O2 supplementation 3 litres via nasal canula. Albuterol/atrovent aerosol treatments q 6 hours. Continue I/V solumedrol. Continue Levaquin. Continue S/C Heparin. Continue Famotadine. (2) COPD exacerbation Current Visit: No Status: Acute Plan to address problem: O2 supplementation 3 litres via nasal canula. Albuterol/atrovent aerosol treatments q 6 hours. Continue I/V solumedrol. Continue Levaquin. Continue S/C Heparin. Continue Famotadine. (3) Lung mass Current Visit: Yes Status: Acute Plan to address problem: Patient want work up at [facility]. (4) Postobstructive pneumonia Current Visit: Yes Status: Acute Plan to address problem: Patient is on Levaquin. 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 Diagnosed by wedge resection in 2013 at [facility]. (6) HTN (hypertension) Current Visit: No Status: Chronic Qualifiers: Hypertension type: essential hypertension Qualified Code(s): I10 - Essential (primary) hypertension Plan to address problem: Management as per primary care.
[2017-08-17] MEDS ORDERED: XANAX PO PRN (20:26)
[2017-08-18] MEDS: D5NS 1,000 ML IV SCH (05:46)
[2017-08-18] MEDS: DUONEB *Not for PRN Use IH SCH ×3 (07:24→15:34)
[2017-08-18] MEDS: PEPCID IV SCH (09:24)
[2017-08-18] MEDS: LEVAQUIN 750MG/150ML 750 MG/150 ML BAG IV SCH (09:24)
[2017-08-18] MEDS: SODIUM CHLORIDE FLUSH SYRINGE 10 ML IV SCH (09:31)
--- NOTE | 2017-08-18 10:16 | Progress Note ---
Subjective Date of service: 08/18/17 Principal diagnosis: Acute Hypoxemic Respiratory Failure; AE COPD Interval history: Patient is seen today for: Seen and examined at bedside; 24hour events reviewed; nursing and respiratory care staff consulted; no adverse overnight events reported to me; Objective Vital Signs - 12hr 08/18/17 07:44 Temperature 97.6 F Pulse Rate 106 H Respiratory 19 Rate Blood Pressure 139/69 [Left] O2 Sat by Pulse 96 Oximetry Constitutional: no acute distress, alert Eyes: non-icteric ENT: oropharynx moist Neck: supple, no lymphadenopathy Ascultation: Bilateral: diminished breath sounds Cardiovascular: regular rate and rhythm Gastrointestinal: normoactive bowel sounds, soft, non-tender Integumentary: normal Extremities: no cyanosis, no edema Neurologic: normal mental status, non-focal exam, pupils equal and round, other (Patient has tremors.) Psychiatric: anxious CBC and BMP: 08/17/17 04:54 08/17/17 04:54 ABG, PT/INR, D-dimer: ABG POC ABG pH 7.504 (7.35-7.45) H 08/16/17 19:24 POC ABG pCO2 40.1 (35-45) 08/16/17 19:24 POC ABG pO2 49 (80-105) L 08/16/17 19:24 POC ABG HCO3 31.5 08/16/17 19:24 POC ABG Total CO2 33 08/16/17 19:24 POC ABG O2 Sat 88 08/16/17 19:24 PT/INR, D-dimer PT 14.1 Sec. (12.2-14.9) 08/16/17 17:39 INR 1.04 (0.87-1.13) 08/16/17 17:39 Abnormal lab findings: Abnormal Labs 08/16/17 08/16/17 08/16/17 17:39 17:39 19:24 RDW 13.1 L Lymph % (Auto) Lymph # Seg Neutrophils % Seg Neuts % (Manual) 90.0 H Lymphocytes % (Manual) 4.0 L Seg Neutrophils # Man 9.3 H Lymphocytes # (Manual) 0.4 L POC ABG pH 7.504 H POC ABG pO2 49 L Chloride 94.0 L Carbon Dioxide 31 H Creatinine Glucose 132 H Albumin 08/17/17 08/17/17 04:54 04:54 RDW 12.8 L Lymph % (Auto) 9.6 L Lymph # 0.8 L Seg Neutrophils % 86.3 H Seg Neuts % (Manual) Lymphocytes % (Manual) Seg Neutrophils # Man Lymphocytes # (Manual) POC ABG pH POC ABG pO2 Chloride 97.5 L Carbon Dioxide 31 H Creatinine 0.6 L Glucose 131 H Albumin 3.6 L
[2017-08-18] MEDS ORDERED: VERSED IV ONE ×2 (11:21→11:27)
[2017-08-18] MEDS ORDERED: SUBLIMAZE ONE (11:22)
[2017-08-18] MEDS ORDERED: SUBLIMAZE IV ONE (11:27)
--- NOTE | 2017-08-18 11:59 | Discharge Summary ---
Providers - Providers Date of Admission: 08/16/17 22:21 Attending physician: IMELDA ACEVEDO MD 08/16/17 22:21 Consult to Physician [CONS] Routine Comment: Consulting Provider: YUE SHAH Physician Instructions: Reason For Exam: Ac resp failure 08/16/17 22:24 Consult to Case Management [CONS] Routine Services Needed at Discharge: Home Health Services Home O2 Notified:: copy left for cm Primary care physician: TE[employer]ICAL SAL[employer] SUPPORT MANAGER Hospitalization Reason for admission: shortness of breath Condition: Stable Hospital course: 76-year-old female with history of partial Rt lung resection for lung CA in 2012 recently started on an inhaler by her records supervisor a week ago for wheezing has been having increasing shortness of breath off-and-on for 2 weeks. Chronic cough no fever no chest pain no abdominal pain. For evaluation of worsening shortness of breath. No calf pain or swelling, no abd pain , no other complaints. Some weight loss present. As per daughters the patient had lung cancer and was in remission since 2014 and apparently cancer free and stopped following with oncology since last 2 years. Former big time smoker patient was started on steroids, now tapered, also the patient had an MRI that was negative for metastatic disease. Biopsy of the lungs could not be obtained due to the location and a recommended for [facility] based on the family and patients request. An appointment was made at [facility] and advised to the family. follow up with PCP and pulmonary and oncology was also recommended. Pulmonary Function Test at 11 am, arrive at 10:[address] Elgin Gibson [address], [address] [place] [address] Discharge diagnosis (1) Acute respiratory failure with hypoxia (2) Lung cancer (3) Postobstructive pneumonia (4) COPD exacerbation (5) HTN (hypertension) Disposition: [id number]/TX-06 HOME UNDER HOME HLTH Time spent for discharge: 35 mins Core Measure Documentation - Palliative Care Palliative Care/ Comfort Measures: Not Applicable - Core Measures Any of the following diagnoses?: none - VTE Discharge Requirements Deep Vein Thrombosis/Pulmonary Embolism Present on Admission: No Exam - Physical Exam Narrative exam: General appearance: Present: mild distress, cachectic, other (frail appearing) - EENT Eyes: Present: PERRL, EOM intact ENT: hearing intact, clear oral mucosa - Neck Neck: Present: supple, normal ROM - Respiratory Respiratory effort: normal Respiratory: bilateral: diminished - Cardiovascular Rhythm: regular Heart Sounds: Present: S1 & S2 - Extremities Extremities: no ischemia, pulses intact, pulses symmetrical, No edema, normal temperature Peripheral Pulses: within normal limits - Abdominal General gastrointestinal: soft, non-tender, non-distended, normal bowel sounds - Integumentary Integumentary: Present: clear, warm - Psychiatric Psychiatric: appropriate mood/affect - Neurologic Neurologic: CNII-XII intact, moves all extremities - Allied Health Allied health notes reviewed: nursing - Constitutional Vitals: Temp Pulse Resp BP Pulse Ox 97.6 F 104 H 18 139/69 96 08/18/17 07:44 08/18/17 08:25 08/18/17 08:25 08/18/17 07:44 08/18/17 11:54 Plan Activity: advance as tolerated, fall precautions Diet: low fat Special Instructions: record daily weights, record daily BP diary, home oxygen via (nasal cannula @ 3 liters per minute) Durable Medical Equipment Needed Upon Discharge: Nebulizer Additional Instructions: patient to have bronchoscopy at [facility] for lung biopsy. PCP/PULMONARY AND HEMAONC to arrange Follow up with: PRIMARY CARE, [Primary Care Provider] - 3-5 Days YUE SHAH MD [Staff Physician] - 7 Days JOSE J HENRY MD [Staff Physician] - 7 Days Prescriptions: ALPRAZolam [Xanax TAB] 1 mg PO TID PRN #14 tablet PRN Reason: Anxiety Prednisone [predniSONE 10 mg (6-Day Pack, 21 Tabs)] 10 mg PO .TAPER #1 tab.ds.pk Ipratropium/Albuterol Sulfate [DUONEB *Not for PRN Use*] 1 ampul IH QIDRT #90 ampul.neb
[2017-08-18] MEDS: HCTZ PO SCH (12:33)
[2017-08-18] MEDS: LOPRESSOR PO SCH (12:33)
[2017-08-18] MEDS: HEPARIN SUB-Q SCH (12:36)
[2017-08-18 15:44] VITALS: BP 128/62
[2017-08-18] MEDS ORDERED: PEPCID PO SCH (22:00)
[2017-08-19] MEDS ORDERED: LEVAQUIN PO SCH (10:00)
== END 2017-08-18 17:15 | disposition home health service (06) | DRG 193 ==
LOC: ED 17:08 → 3A 22:21
PROVIDERS: ADMIT Internal Medicine; ATTEND Internal Medicine
PROC: 4A033R1 Measurement of Arterial Saturation, Peripheral, Percutaneous Approach (ICD-10-PCS; principal; 2017-08-16)
DX: J18.8 Other pneumonia, unspecified organism (principal); J96.01 Acute respiratory failure with hypoxia; C34.02 Malignant neoplasm of left main bronchus; J44.1 Chronic obstructive pulmonary disease with (acute) exacerbation; J44.0 Chronic obstructive pulmonary disease with (acute) lower respiratory infection; J98.11 Atelectasis; I10 Essential (primary) hypertension; Z87.891 Personal history of nicotine dependence
CPT/HCPCS: 36415; 70551; 71045; 80053; 80307; 81001; 82803; 84484; 85007; 85025; 85610; 85730; 94640; 94760; 96374; J1644; J1956; J2250; J2405; J2920; J2930; J3010; J7042